=== PATIENT | male | born 1985 | race Caucasian/White ===

== ENCOUNTER 2017-12-01 20:46 | Emergency (ER) | payer OTHER ==
[~2017-12-01] VITALS: Ht 175.3 cm; Wt 79.4 kg
[~2017-12-01 20:46] MED LIST: HYDROCODONE-APA1 TA1 PO
[2017-12-01] MEDS ORDERED: IBUPROFEN 400400 M2 PO (21:03)
[2017-12-01] MEDS ORDERED: PROMETHAZINE/C118 ML PO (21:36)
[2017-12-01 21:53] VITALS: BP 121/69
== END 2017-12-01 21:45 | disposition home or self-care (01) ==
LOC: M.ERS 20:46
DX: J06.9 Acute upper respiratory infection, unspecified (principal); F10.99 Alcohol use, unspecified with unspecified alcohol-induced disorder